=== PATIENT | male | born 1970 | race Caucasian/White ===

== ENCOUNTER → 2023-04-13 13:37 | Outpatient (CLI) | payer OTHER, SELFPAY ==
--- NOTE | ~2023-04-13 | CT_ITS ---
EXAMINATION: CT abdomen pelvis wo con DATE: 04/13/2023 14:09 INDICATION: Nephrolithiasis TECHNIQUE: Computed tomography (CT) of the abdomen and pelvis was performed without intravenous contr ast. Automated exposure control and iterative reconstruction technique were employed. The dose-length product was 1057.30 mGy-cm. COMPARISON: None FINDINGS: Lung bases are clear. Heart size is normal. No pericardial or pleural effusion. Subcentimeter cyst in the left hepatic lobe. Spleen, pancreas and bilateral adrenal glands are normal. There are 2 nonobst ructing stones at the lower pole of the right kidney the larger measuring 3 mm. 4 mm nonobstructing s tone at an upper pole calyx of the left kidney. No evident ureteral stones or hydronephrosis. Portion s of the bladder, prostate and distalmost ureters are however obscured by dense metallic streak artif act related to bilateral total hip arthroplasties. A few phleboliths in the pelvis. Bowels including the appendix are normal. No free intraperitoneal gas or fluid. No pathologically enlarged abdominal o r pelvic lymphadenopathy. Small bilateral fat-containing inguinal hernias. Severe lumbar and moderate lower thoracic spondylosis. IMPRESSION: 1. Bilateral nonobstructing nephrolithiasis. Reviewed, dictated and finalized at location B.
== END ==
DX: N20.0 Calculus of kidney (principal)
CPT/HCPCS: 74176

== ENCOUNTER 2023-04-24 01:25 | Day surgery (SDC) | payer OTHER, SELFPAY ==
[2023-04-14 11:48] VITALS: BMI 36.3
[2023-04-24 06:10] VITALS: BP 134/82; PULSE 74; RESP 18; TEMP 36.3; O2SAT 97; BMI 36.3
[2023-04-24] MEDS: LACTATED RINGERS 1,000 ML 150 ML IV CONT (06:35)
--- NOTE | 2023-04-24 07:22 | P.HP_ITS ---
History of Present Illness History of Present Illness Consent: Risks, benefits, and alternatives have been discussed and questions answered. Patient agrees to proceed with procedure. Chief complaint: Family history of colon cancer Narrative: Matthew Rosen is a 52 year old male Is for screening colonoscopy. Patient's mother had colon cancer. Patient presents today for surveillance exam. Patient reports that his current weight appetite and bowel movements are normal. Patient denies abdominal pain. He has had no bleeding. Family history as stated. Previous colonoscopy 5 years ago was reported to be unremarkable. Patient reports he is now also dealing with kidney stones. Review of Systems Review of Systems: Review of systems noncontributory. [facility] Social History Social History Smoking status: Never smoker Alcohol intake: current Drinks per week: 6 Alcohol use details: BEERS Substance use: never Substance use type: does not use Living arrangements: with family Spiritual care concerns: No Meds Home Medications and Allergies Home Medications Medication Instructions Recorded Confirmed Type apixaban 5 mg tablet (Eliquis) 5 mg PO BID 04/14/23 04/24/23 History cetirizine 10 mg tablet (Zyrtec) 10 mg PO DAILY 04/14/23 04/24/23 History losartan 50 mg tablet 50 mg PO DAILY 04/14/23 04/24/23 History metoprolol succinate 50 mg 50 mg PO BID 04/14/23 04/24/23 History tablet,extended release 24 hr cxtmmxhsfabz-xcxllaha-cfatyt tablet 1 tablet PO DAILY 04/14/23 04/24/23 History sertraline 100 mg tablet 100 mg PO DAILY 04/14/23 04/24/23 History tamsulosin 0.4 mg capsule 0.4 mg PO HS 04/14/23 04/24/23 History Allergies Allergy/AdvReac Type Severity Reaction Status Date / Time lisinopril Allergy Mild Cough Verified 04/24/23 06:21 Vital Signs Vital Signs - 24 hr 04/24/23 06:10 Temperature 97.3 F L Pulse Rate 74 Respiratory Rate 18 Blood Pressure 134/82 Pulse Oximetry 97 Oxygen Delivery Room Air Exam Narrative: Physical exam reveals patient to be alert. Vital signs stable. HEENT exam is unremarkable. Patient is anicteric. Lungs are clear to auscultation and percussion. Heart is without murmur or extra sounds. Abdomen bowel sounds are present soft nontender with no organomegaly. Digital external rectal exam is normal. Assessment and Plan Assessment and plan (1) Family history of colon cancer in mother: Code(s): Z80.0 - Family history of malignant neoplasm of digestive organs Status: Acute Assessment and Plan: Patient's mother has had colon cancer. For this reason patient has had screening colonoscopy at 5 year intervals. Further recommendations will be given after endoscopy.
--- NOTE | 2023-04-24 07:22 | P.PNAN_ITS ---
Anes - Initial Pre Proc Eval Procedure: Operation Date: 04/24/23 07:30 Proposed Procedures p Screening Colonoscopy - Avtar New MD Date/Time: 04/24/23 07:22 Surgeon: Avtar New MD Pre Op Diagnosis: Right Upper Quadrant Abdominal Pain Patient Data Age: 52 Gender: M Height: 1.8 m Weight: 118 kg Last Vital Signs Temp 97.3 F L 04/24/23 06:10 Pulse 74 04/24/23 06:10 Resp 18 04/24/23 06:10 BP 134/82 04/24/23 06:10 Pulse Ox 97 04/24/23 06:10 O2 Del Method Room Air 04/24/23 06:10 Allergies Allergy/AdvReac Type Severity Reaction Status Date / Time lisinopril Allergy Mild Cough Verified 04/24/23 06:21 Home Medications Medication Instructions Recorded Confirmed Type apixaban 5 mg tablet (Eliquis) 5 mg PO BID 04/14/23 04/24/23 History cetirizine 10 mg tablet (Zyrtec) 10 mg PO DAILY 04/14/23 04/24/23 History losartan 50 mg tablet 50 mg PO DAILY 04/14/23 04/24/23 History metoprolol succinate 50 mg 50 mg PO BID 04/14/23 04/24/23 History tablet,extended release 24 hr lywsbwtqtykz-rgsjqmkg-todkxl tablet 1 tablet PO DAILY 04/14/23 04/24/23 History sertraline 100 mg tablet 100 mg PO DAILY 04/14/23 04/24/23 History tamsulosin 0.4 mg capsule 0.4 mg PO HS 04/14/23 04/24/23 History Patient hx anesthesia problems: none Family hx anesthesia problems: none Results Review: All pre-operative results and documents have been reviewed as part of the pre- operative evaluation. [facility] Social History Social History Smoking status: Never smoker Alcohol intake: current Drinks per week: 6 Alcohol use details: BEERS Substance use: never Substance use type: does not use Living arrangements: with family Spiritual care concerns: No Anes - Eval Final PreProcedure Day of Procedure 04/24/23 07:22 Patient weight: obese Heart: regular rate and rhythm Lungs: clear to auscultation Airway: Mallampati scale class II Neurological: alert and oriented Last oral intake: >/= 8 hours ASA classification: III Emergent: no Anesthetic plan: proceed Anesthesia type and monitoring: general GIVS and standard monitoring Results Review: All pre-operative results and documents have been reviewed as part of the pre- operative evaluation. Informed Consent: The patient's anesthetic plan and its attendant risks and benefits were discussed with the patient/family/POA. Questions were solicited and answers provided to the satisfaction of the patient/family/POA.
[2023-04-24 07:49] VITALS: BP 125/72; PULSE 70; RESP 18; O2SAT 98
[2023-04-24 07:59] VITALS: BP 130/88; PULSE 62; RESP 17; O2SAT 97
[2023-04-24 08:09] VITALS: BP 140/93; PULSE 68; RESP 20; O2SAT 96
== END 2023-04-24 08:18 | disposition home or self-care (01) ==
PROVIDERS: Visit Provider Internal Medicine Gastroenterology
PROC: 0DJD8ZZ Inspection of Lower Intestinal Tract, Via Natural or Artificial Opening Endoscopic (ICD-10-PCS; CPT 45378; principal; 2023-04-24 07:30)
DX: Z12.11 Encounter for screening for malignant neoplasm of colon (principal); D12.2 Benign neoplasm of ascending colon; K64.8 Other hemorrhoids; Z80.0 Family history of malignant neoplasm of digestive organs; Z79.01 Long term (current) use of anticoagulants; E66.9 Obesity, unspecified; Z68.36 Body mass index [BMI] 36.0-36.9, adult
CPT/HCPCS: 45385; 88305; J2704; J7120

== ENCOUNTER 2023-06-12 07:47 | Day surgery (SDC) | payer OTHER, SELFPAY ==
[2023-06-12] VITALS (9 sets, daily range): BP systolic 132–172; BP diastolic 76–90; PULSE 56–70; RESP 10–20; TEMP 36.3–36.8; O2SAT 56–100
--- NOTE | ~2023-06-12 | XR_ITS ---
EXAMINATION: XR retrograde pyelo w/stent RT DATE: 06/12/2023 15:30 INDICATION: Right internal ureteral stent placement TECHNIQUE: Fluoroscopic images from a right internal ureteral stent placement are submitted for zaynab louis 58 seconds of fluoroscopy time. FINDINGS: There is a right double-J internal ureteral stent projecting in expected position, with proximal [place] loop at the level of the renal pelvis and distal loop in the pelvis within the bladder lumen. IMPRESSION: 1. Right internal ureteral stent placement. Please refer to real-time procedural findings for sherman ls. Reviewed, dictated and finalized at location B. IMPRESSION: 1. Right internal ureteral stent placement. Please refer to real-time procedu ral findings for details.
--- NOTE | ~2023-06-12 | CT_ITS ---
EXAMINATION: CT abdomen pelvis wo con DATE: 06/12/2023 08:19 INDICATION: Kidney stones TECHNIQUE: Computed tomography (CT) of the abdomen and pelvis was performed without intravenous contr ast. The dose-length product was 1539.93 mGy-cm. Automated exposure control and iterative reconstruct ion technique were employed. COMPARISON: CT dated 04/13/2023. FINDINGS: Study limited due to streak artifact from hip arthroplasties obscuring the pelvis. There ar e distal right ureteral stones causing obstruction. The exact size of these cannot be assessed due to streak artifact. There is moderate right hydronephrosis with periureteral and perinephric edema. The re is a 2 mm nonobstructing right renal stone. There is a 4 mm nonobstructing left renal stone. There is dependent atelectasis. Heart size normal. No significant pleural or pericardial effusion. Sm all low-density lesion left hepatic lobe, too small to characterize. The spleen, pancreas, adrenal gl ands are unremarkable. Gallbladder is present. Nonobstructive bowel gas pattern. No free air or free fluid. IMPRESSION: 1. Distal right ureteral stones near the UVJ with moderate hydronephrosis. Exact size of stones canno t be assessed due to streak artifact from adjacent hip prosthetic devices. 2: Nonobstructing bilateral nephrolithiasis. Reviewed, dictated and finalized at location B. IMPRESSION: 1. Distal right ureteral stones near the UVJ with moderate hydronephrosis. Exac t size of stones cannot be assessed due to streak artifact from adjacent hip pr osthetic devices. 2: Nonobstructing bilateral nephrolithiasis.
--- NOTE | 2023-06-12 08:03 | ED.BACK ---
HPI - Back Pain/Injury General Chief Complaint: Back Pain/Injury Stated Complaint: right flank pain Time Seen by Provider: 06/12/23 08:02 Source: patient and family Mode of arrival: ambulatory Limitations: no limitations History of Present Illness HPI Narrative: 53 years old white male came to the emergency room by private car with his complaining of steady pain at the right kidney radiating to right lower quadrant started at 8 PM last night. History of kidney stone and usually causing pain for 1 to 2-hour maximum, at this time has been steady since last night. Associated with nausea. He denies any fever, chills, vomiting, diarrhea, constipation or urinary symptoms patient is status post lithotripsy by Brandon Nava 1 month ago Related Data Home Medications Medication Instructions Recorded Confirmed apixaban 5 mg tablet (Eliquis) 5 mg PO BID 04/14/23 04/24/23 cetirizine 10 mg tablet (Zyrtec) 10 mg PO DAILY 04/14/23 04/24/23 losartan 50 mg tablet 50 mg PO DAILY 04/14/23 04/24/23 metoprolol succinate 50 mg 50 mg PO BID 04/14/23 04/24/23 tablet,extended release 24 hr tkdcqkmrcsby-myytybbm-tobzhk tablet 1 tablet PO DAILY 04/14/23 04/24/23 sertraline 100 mg tablet 100 mg PO DAILY 04/14/23 04/24/23 tamsulosin 0.4 mg capsule 0.4 mg PO HS 04/14/23 04/24/23 Allergies Allergy/AdvReac Type Severity Reaction Status Date / Time lisinopril AdvReac Mild Cough Verified 06/12/23 07:57 Review of Systems Review of Systems: All systems reviewed & are unremarkable except as noted in HPI and below PMFSH Social History Social History Smoking status: Never smoker Alcohol intake: current Drinks per week: 6 Alcohol use details: BEERS Substance use: never Substance use type: does not use Living arrangements: with family Spiritual care concerns: No Exam Narrative: General appearance: Well-developed, well-nourished Skin: Normal color Head: Normocephalic, nontraumatic Eyes: Clear conjunctiva ENT: Oropharynx normal, ears normal, nose normal Neck: Supple, nontender Chest and respiratory: Airway patent, no respiratory distress, no accessory muscle use Heart: Regular rate/rhythm Abdomen: Soft, right flank tenderness, no organomegaly, quiet bowel sounds Vascular: Normal peripheral pulses, normal capillary refill. 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 Ortiz OR at 2 PM today Date: 06/12/23 Time: 12:30 Vital Signs Vital signs: Vital Signs Temperature 36.4 C L 06/12/23 07:48 Pulse Rate 67 06/12/23 07:48 Respiratory Rate 20 06/12/23 07:48 Blood Pressure 172/85 H 06/12/23 07:48 Pulse Oximetry 97 06/12/23 07:48 Oxygen Delivery Room Air 06/12/23 07:48 Temperature 36.4 C L 06/12/23 07:48 Pulse Rate 70 06/12/23 10:00 Respiratory Rate 16 06/12/23 10:00 Blood Pressure 143/90 H 06/12/23 10:00 Pulse Oximetry 97 06/12/23 10:00 Oxygen Delivery Room Air 06/12/23 07:48 MDM - Back Pain/Injury MDM Narrative Medical decision making narrative: Patient presents with right flank pain, status post right lithotripsy 1 month ago, physical exam showed mild tenderness right flank and right lower quadrant, differential diagnosis include kidney stone, urinary tract infection, diverticulitis. Work-up today and repeated CT scan of the abdomen and pelvis without contrast showed distal right ureteral stones near the UVJ with moderate hydronephrosis. Exact site of stones cannot be assessed due to streak artifact f
[2023-06-12 08:12] LABS: Basophils Percent Auto 0.4 % (0.2-1.2); Eosinophils Percent Auto 0.1 % (0-4.4); Hematocrit 44.5 % (42.0-52.0); Hemoglobin 14.8 g/dL (14.0-18.0); Immature Granulocyte Absolute 0.04 K/mm3 (0.00-0.031); Immature Granulocyte Percent A 0.4 % (0-0.5); Lymphocytes Percent Auto 13.6 % (18.3-44.2); Mean Corpuscular HGB Conc 33.3 g/dl (32-36); Mean Corpuscular Hemoglobin 29.1 pg (26-34); Mean Corpuscular Volume 87.4 fl (80-100); Mean Platelet Volume 9.9 fl (7.4-10.4); Monocytes Absolute Auto 0.7 K/mm3 (0.1-0.6); Monocytes Percent Auto 7.3 % (2.6-8.5); Neutrophils Absolute Auto 7.5 K/mm3 (1.3-6.7); Neutrophils Percent Auto 78.2 % (45.5-73.1); Platelet Count Result 247 k/mm3 (150-375); Red Blood Count 5.09 M/mm3 (4.6-6.20); Red Cell Distribution Width 12.9 % (11.5-14.5); White Blood Count 9.6 K/mm3 (4.5-10.0)
[2023-06-12 08:19] LABS: Appearance Urine Clear (Clear); Bacteria Urine None Seen /hpf; Bilirubin Urine Negative (Negative); Color Urine Yellow (Yellow); Glucose Urine UA Negative (Negative); Ketones Urine Negative (Negative); Leukocyte Esterase Ur Negative LEU/UL (Negative); Nitrate Urine Negative (Negative); Non Pathogenic Casts 0-2; Protein Urine Negative (Negative); RBC Urine 0-2 /hpf (0-2); Specific Grav Ur 1.027 (1.001-1.035); Squamous Epithelial Cell Urine None seen /hpf (Few); Urobilinogen Urine 0.2 mg/dL (<2.0); WBC Urine 0-5 /hpf; pH Urine 5.5 (5.0-9.0)
[2023-06-12] MEDS: SODIUM CHLORIDE 0.9% IV 1,000 ML 999 ML IV CONT (08:20)
[2023-06-12 08:22] LABS: Alanine Aminotransferase 20 U/L (6-50); Albumin Level 4.2 g/dL (3.5-5.1); Alkaline Phosphatase 101 U/L (38-126); Anion Gap 8 mmol/L (8-16); Aspartate Amino Transferase 30 U/L (17-59); Bilirubin,Total 0.9 mg/dL (0.2-1.3); Blood Urea Nitrogen 25 mg/dL (9-20); Calcium 9.2 mg/dL (8.4-10.2); Carbon Dioxide 22 mmol/L (22-30); Chloride 105 mmol/L (98-107); Estimated CRCL calculation 95 ml/min; Estimated Glomerular Filt Rate > 60; Glucose 136 mg/dL (65-110); Lipase 81 U/L (23-300); Potassium 4.2 mmol/L (3.4-5.0); Sodium 135 mmol/L (137-145)
[2023-06-12] MEDS: ONDANSETRON INJ 4 MG/2 ML VIAL IV PUSH (08:24)
[2023-06-12] MEDS: HYDROmorphone HCL INJ (*CRX) 1 MG/ML SYR 0.5 MG IV PUSH ×2 (08:25→09:28)
[2023-06-12 08:49] LABS: Add Urine Microscopic? YES
--- NOTE | 2023-06-12 13:12 | WPDURCON ---
Assessment and Plan Assessment and plan (1) Ureteral calculus, right: Code(s): N20.1 - Calculus of ureter Status: Acute Assessment and Plan: Obtain Consent: Cystoscopy, right ureteroscopy with stone removal, right stent placement, right retrograde pyelogram, possible holmium laser. Keep NPO. Plan to go to the OR today with Dr. Ortiz. Urology Consult Note HPI Date Seen: 06/12/23 Time Seen: 13:12 Primary Care Provider: PHYSICIAN NOT ON STAFF Consult Narrative Reason for consult: Right UVJ Stone Narrative: Matthew Rosen is a 53 year old male who presented to the ER today for worsening right flank pain that started last night and radiates to the RLQ. He denies hematuria, dysuria, nausea or vomiting. He does have frequency and urgency to urinate, but denies straining, hesitancy or cloudy urine. His UA is clear and not suggestive of a UTI at this time. He is afebrile, WBC is 9.6, Creatinine is 1.00. He had a lithotripsy on 05/07/[address] Brandon Bautista from our group and reports passing two stone fragments since but the pain was tolerable during those episodes. His pain at this time is not tolerable on IV pain medication. CT scan done today shows Distal right ureteral stones near the UVJ with moderate hydronephrosis. Exact size of stones cannot be assessed due to streak artifact from adjacent hip prosthetic devices. Nonobstructing bilateral nephrolithiasis. Review of Systems Cardiovascular: Cardiovascular: Denies chest pain Respiratory: Respiratory: Reports no additional respiratory complaints Gastrointestinal: Gastrointestinal: Reports abdominal pain, Denies nausea and Denies vomiting Genitourinary: Genitourinary: Denies hematuria, Denies dysuria, Reports flank pain, Reports urinary frequency, Denies urinary hesitancy and Denies urinary urgency [facility] Social History Social History Smoking status: Never smoker Alcohol intake: current Drinks per week: 6 Alcohol use details: BEERS Substance use: never Substance use type: does not use Living arrangements: with family Spiritual care concerns: No Meds Home Medications and Allergies Home Medications Medication Instructions Recorded Confirmed Type apixaban 5 mg tablet (Eliquis) 5 mg PO BID 04/14/23 04/24/23 History cetirizine 10 mg tablet (Zyrtec) 10 mg PO DAILY 04/14/23 04/24/23 History losartan 50 mg tablet 50 mg PO DAILY 04/14/23 04/24/23 History metoprolol succinate 50 mg 50 mg PO BID 04/14/23 04/24/23 History tablet,extended release 24 hr usooylyfxppq-ncijkdjd-susyjp tablet 1 tablet PO DAILY 04/14/23 04/24/23 History sertraline 100 mg tablet 100 mg PO DAILY 04/14/23 04/24/23 History tamsulosin 0.4 mg capsule 0.4 mg PO HS 04/14/23 04/24/23 History Allergies Allergy/AdvReac Type Severity Reaction Status Date / Time lisinopril AdvReac Mild Cough Verified 06/12/23 07:57 Vital Signs Vital Signs - 24 hr 06/12/23 07:48 06/12/23 10:00 06/12/23 12:45 Temperature 97.5 F L Pulse Rate 67 70 61 Respiratory Rate 20 16 16 Blood Pressure 172/85 H 143/90 H 148/86 H Pulse Oximetry 97 97 99 Oxygen Delivery Room Air Exam Const: General: cooperative and no acute distress Resp: Effort & Inspection: normal respiratory effort Cardio: Rate: regular rate GI: GI Palp: Yes Soft to palpation and Yes Tenderness to palpation present (GI) (RLQ) : General: Yes CVA tenderness on the right Extrem: Right lower extremity: no edema Left lower extremity: no edema Results Labs 06/12/23 08:03 06/12/23 08:03 Labs: Short CBC 06/12/23 Range/Units 08:03 WBC 9.6 (4.5-10.0) K/mm3 Hgb 14.8 (14.0-18.0) g/dL Hct 44.5 (42.0-52.0) % Plt Count 247 (150-375) k/mm3 BMP 06/12/23 08:03 Sodium 135 L Potassium 4.2 Chloride 105 Carbon Dioxide 22 BUN 25 H Creatinine 1.00 Glucose 136 H Calcium 9.2 Liver Fu
--- NOTE | 2023-06-12 13:55 | WPDHPUPDATE1 ---
History and Physical Update Update Date/Time: 06/12/23 13:55 History and Physical has been reviewed, including an updated exam of the patient. There are NO changes in the patient's condition. Risks, benefits, and alternatives have been discussed and questions answered. Patient agrees to proceed with procedure.
--- NOTE | 2023-06-12 14:10 | WPDANESEPPF ---
Anes - Initial Pre Proc Eval Procedure: Operation Date: 06/12/23 14:30 Proposed Procedures p Cystoscopy, Right Ureteroscopy, Right Retrograde Pyelogram, Right Stone Extraction, Possible Right Stent Placement, Possible Holmium Laser - Alexandria Ortiz MD Date/Time: 06/12/23 14:10 Pre Op Diagnosis: right flank pain Patient Data Age: 53 Gender: M Height: 1.8 m Weight: 115 kg Last Vital Signs Temp 36.4 C L 06/12/23 07:48 Pulse 61 06/12/23 12:45 Resp 16 06/12/23 12:45 BP 148/86 H 06/12/23 12:45 Pulse Ox 99 06/12/23 12:45 O2 Del Method Room Air 06/12/23 07:48 Allergies Allergy/AdvReac Type Severity Reaction Status Date / Time lisinopril AdvReac Mild Cough Verified 06/12/23 07:57 Home Medications Medication Instructions Recorded Confirmed Type apixaban 5 mg tablet (Eliquis) 5 mg PO BID 04/14/23 04/24/23 History cetirizine 10 mg tablet (Zyrtec) 10 mg PO DAILY 04/14/23 04/24/23 History losartan 50 mg tablet 50 mg PO DAILY 04/14/23 04/24/23 History metoprolol succinate 50 mg 50 mg PO BID 04/14/23 04/24/23 History tablet,extended release 24 hr cpabqslzkclv-zyfbriov-ygvxby tablet 1 tablet PO DAILY 04/14/23 04/24/23 History sertraline 100 mg tablet 100 mg PO DAILY 04/14/23 04/24/23 History tamsulosin 0.4 mg capsule 0.4 mg PO HS 04/14/23 04/24/23 History Laboratory Tests 06/12/23 06/12/23 07:59 08:03 WBC 9.6 K/mm3 (4.5-10.0) RBC 5.09 M/mm3 (4.6-6.20) Hgb 14.8 g/dL (14.0-18.0) Hct 44.5 % (42.0-52.0) MCV 87.4 fl (80-100) MCH 29.1 pg (26-34) MCHC 33.3 g/dl (32-36) RDW 12.9 % (11.5-14.5) Plt Count 247 k/mm3 (150-375) MPV 9.9 fl (7.4-10.4) Immature Gran % (Auto) 0.4 % (0-0.5) Neut % (Auto) 78.2 H % (45.5-73.1) Lymph % (Auto) 13.6 L % (18.3-44.2) [place] % (Auto) 7.3 % (2.6-8.5) Eos % (Auto) 0.1 % (0-4.4) Baso % (Auto) 0.4 % (0.2-1.2) Lymph # (Auto) 1.30 K/mm3 (0.9-3.2) [place] # (Auto) 0.7 H K/mm3 (0.1-0.6) Eos # (Auto) 0.0 K/mm3 (0-0.3) Baso # (Auto) 0.0 K/mm3 (0.0-0.1) Abs Immat Gran (auto) 0.04 H K/mm3 (0.00-0.031) Absolute Neuts (auto) 7.5 H K/mm3 (1.3-6.7) Absolute Nucleated RBC 0.0 K/mm3 (0.0-0.012) Nucleated RBC % 0.0 % (0.0-0.2) Sodium 135 L mmol/L (137-145) Potassium 4.2 mmol/L (3.4-5.0) Chloride 105 mmol/L (98-107) Carbon Dioxide 22 mmol/L (22-30) Anion Gap 8 mmol/L (8-16) BUN 25 H mg/dL (9-20) Creatinine 1.00 mg/dL (0.7-1.3) Estim Creat Clear Calc 95 ml/min Estimated GFR > 60 (59 - ) Glucose 136 H mg/dL (65-110) Calcium 9.2 mg/dL (8.4-10.2) Total Bilirubin 0.9 mg/dL (0.2-1.3) AST 30 U/L (17-59) ALT 20 U/L (6-50) Alkaline Phosphatase 101 U/L (38-126) Total Protein 8.0 g/dL (6.3-8.2) Albumin 4.2 g/dL (3.5-5.1) Lipase 81 U/L (23-300) Urine Color Yellow (Yellow) Urine Appearance Clear (Clear) Urine pH 5.5 (5.0-9.0) Ur Specific [place] 1.027 (1.001-1.035) Urine Protein Negative mg/dL (Negative) Urine Glucose (UA) Negative mg/dL (Negative) Urine Ketones Negative mg/dL (Negative) Ur Blood (Man) Non-hemolyzed trace (Negative) Urine Nitrate Negative (Negative) Urine Bilirubin Negative (Negative) Urine Urobilinogen 0.2 mg/dL (<2.0) Leukocyte Esterase Rfl Negative ERICKA/UL (Negative) Urine RBC 0-2 /hpf (0-2) Urine WBC 0-5 /hpf Ur Squamous Epith Cells None seen /hpf (Few) Urine Bacteria None seen /hpf Urine Casts 0-2 Patient hx anesthesia problems: none Family hx anesthesia problems: none Results Review: All pre-operative results and documents have been reviewed as
[2023-06-12] MEDS: LACTATED RINGERS 1,000 ML 30 ML IV CONT (14:27)
[2023-06-12] MEDS: ceFAZolin 2 GM/D5W 50 ML 2 GM/50 ML BAG IVPB (14:42)
[2023-06-12] MEDS: LIDOCAINE HCL 2% GEL UROJET 10 ML PKG MUCOUS MEM (14:54)
--- NOTE | 2023-06-12 15:26 | W.PM.PROC2 ---
Procedure Note - Detailed Date of Procedure 06/12/23 Pre-op Diagnosis right ureteral stones Post-op Diagnosis Same Procedure Performed Cystoscopy, right ureteroscopy, laser lithotripsy, retrograde pyelogram, stone extraction, stent insertion Surgeon Alexandria Ortiz MD Anesthesia General Description of Procedure Informed consents obtained. Patient in the afternoon. Given preoperative IV antibiotics. He was induced anesthesia. He was prepped draped normal sterile fashion. We inserted a 20 F cystoscope through urethra the bladder. Inspection of bladder revealed no mucosal abnormalities. The patient had bilateral orthotopic ureteral orifices. Plain film x-ray revealed a 8mm stone in the area of right distal ureter. We cannulated the right ureteral orifice with a wire and then dilate with an 810 coaxial dilator. We advanced a semi rigid ureteral scope and encountered 2 stones in the distal ureter did just above an area of narrowing. We were able to remove the smaller stone fragment that was approximately 3mm in size with a basket. A 6 to 7 mm residual fragment was too large to remove and therefore we used the laser fiber to fragment this stone into multiple smaller fragments which were each individually removed with a Zero tip Nitinol basket. We then inspected the distal half of the ureter and there were no residual stones seen. Retrograde pyelogram revealed severe right hydroureteronephrosis, no extravasation. Over the wire replaced a 6 F variable length stent with a curl in renal pelvis and a curl the bladder. Lidocaine Uro jet was instilled. Patient was awakened and taken to PACU in stable condition. Plan ureteral stent removal in 2 weeks Pathology Yes Complications No immediate complications Condition Stable Disposition PACU
== END 2023-06-12 16:44 | disposition home or self-care (01) ==
LOC: ANHED 12:33 → ANHSURGERY 14:41
PROVIDERS: Emergency Provider Emergency Medicine; Visit Provider Urology
PROC: (CPT 52352; principal; 2023-06-12 14:30)
DX: N13.2 Hydronephrosis with renal and ureteral calculous obstruction (principal); I48.0 Paroxysmal atrial fibrillation; G47.33 Obstructive sleep apnea (adult) (pediatric); E66.9 Obesity, unspecified; Z68.35 Body mass index [BMI] 35.0-35.9, adult; Z79.01 Long term (current) use of anticoagulants
CPT/HCPCS: 52356; 36415; 74176; 74420; 80053; 81001; 82365; 83690; 85025; 88300; 96361; 96374; 96375; 96376; 99285; C1769; C2617; J0690; J1170; J2405; J3010; J7030; J7120; Q9966

== ENCOUNTER → 2023-08-24 15:04 | Outpatient (CLI) | payer OTHER, SELFPAY ==
--- NOTE | ~2023-08-24 | CT_ITS ---
EXAMINATION: CT abdomen pelvis wo con DATE: 08/24/2023 15:30 INDICATION: Calculus of ureter TECHNIQUE: Computed tomography (CT) of the abdomen and pelvis was performed without intravenous contr ast. Automated exposure control and iterative reconstruction technique were employed. The dose-length product was 1077.69 mGy-cm. COMPARISON: 06/12/2023 FINDINGS: Mild discoid atelectasis at the lingula. Heart size normal. Atherosclerotic coronary artery calcifica tion. No pericardial or pleural effusion. Small sliding-type hiatal hernia. Liver, gallbladder, splee n, pancreas and bilateral adrenal glands are normal. Unchanged 4 mm nonobstructing stone in upper jack e calyx of the left kidney. Portions of the prostate, bladder and distal most ureters are obscured by metallic streak artifact resulting from bilateral total hip arthroplasties. No stones seen in the ri ght kidney or along the visualized portions of the bilateral ureters. No hydronephrosis. Bowels inclu ding the appendix are normal. No free intraperitoneal gas or fluid. No pathologically enlarged abdomi nal or pelvic lymphadenopathy. Small bilateral fat-containing inguinal hernias. Severe lumbar and mod erate lower thoracic spondylosis. IMPRESSION: 1. Unchanged 4 mm nonobstructing stone at the upper pole of the left kidney. No other evident urolith iasis. Reviewed, dictated and finalized at location A. [employer] DISP[employer]ING [employer]ICIAN IMPRESSION: 1. Unchanged 4 mm nonobstructing stone at the upper pole of the left kidney. No other evident urolithiasis.
--- NOTE | ~2023-08-24 | XR_ITS ---
Supine and upright views of the abdomen Clinical history: Ureteral stone Findings: Bowel gas pattern is nonspecific. No evidence for obstruction or free air. Probable small l eft renal stone present. Bilateral hip arthroplasties are in place. Impression: Small left renal stone. Reviewed, dictated and finalized at [facility]. [employer] STRATEGIST Impression: Small left renal stone.
== END ==
PROVIDERS: PCP Urology; Visit Provider Urology
DX: N20.1 Calculus of ureter (principal)
CPT/HCPCS: 74018; 74176

== ENCOUNTER 2024-03-19 07:44 | Outpatient (CLI) | payer OTHER, SELFPAY ==
--- NOTE | ~2024-03-19 | XR_ITS ---
EXAMINATION: XR abdomen/kub 1V DATE: 03/19/2024 08:07 INDICATION: Kidney stone. TECHNIQUE: A supine view of the abdomen on 2 radiographs was obtained. COMPARISON: CT abdomen pelvis 08/24/2023, abdomen radiographs 08/24/2023 FINDINGS: There are no dilated loops of bowel. There is a 4 mm stone in left kidney. There are phlebo liths in the pelvis. There are bilateral total hip arthroplasties. IMPRESSION: 1. 4 mm stone in left kidney. Reviewed, dictated and finalized at location A.
== END 2024-03-19 07:45 ==
PROVIDERS: PCP Urology; Visit Provider Urology
DX: N20.0 Calculus of kidney (principal)
CPT/HCPCS: 74018

== ENCOUNTER 2024-04-19 16:12 | Outpatient (CLI) | payer OTHER, SELFPAY ==
--- NOTE | ~2024-04-19 | XR_ITS ---
Supine and upright views of the abdomen Clinical history: Status post lithotripsy COMPARISON: 03/19/2024 Findings: Bowel gas pattern is nonspecific. No evidence for obstruction or free air. No abnormal mass lesion or calcification is seen. Bilateral hip arthroplasty present. Impression: No significant abnormality is seen. Reviewed, dictated and finalized at [facility]. Impression: No significant abnormality is seen.
== END 2024-04-19 16:13 ==
PROVIDERS: PCP Urology; Visit Provider Urology
DX: N20.0 Calculus of kidney (principal)
CPT/HCPCS: 74018

== ENCOUNTER 2025-05-24 15:12 | Outpatient (CLI) | payer OTHER, SELFPAY ==
--- NOTE | ~2025-05-24 | XR_ITS ---
EXAMINATION: XR abdomen/kub 1V, 05/24/2025 15:46 CDT HISTORY: Kidney stone; yearly check COMPARISON: No comparisons available. Technique: 3 view. Findings: Moderate fecal content, no dilated bowel loops. No free air. No abnormal calcifications No acute osseous abnormality. Impression: 1. No renal calculi identified Reviewed, dictated and finalized at location A. Impression: 1. No renal calculi identified
== END 2025-05-24 15:13 | disposition home or self-care (01) ==
PROVIDERS: PCP Urology; Visit Provider Urology
DX: N20.0 Calculus of kidney (principal)
CPT/HCPCS: 74018